=== PATIENT | male | born 1995 | race Caucasian/White ===

== ENCOUNTER 2025-07-08 03:02 | Emergency (ER) | payer BC ==
[~2025-07-08] VITALS: Ht 185.4 cm; Wt 180.4 kg
--- NOTE | 2025-07-08 03:11 | ELECTROCARDIOGRAPH REPORT ---
[facility] Test Date: 2025-07-08 Test Time: 03:09:58 Pat Name: LYNETTE BANG Department: EMERGENCY ROOM Patient ID: [id number]-[id number] Room: Gender: M [employer]ig[employer]: : 1995 Requested By: REHAN SARKAR Order Number: [id number] Reading MD: Dr. ANDREW Escamilla Measurements Intervals [place] Rate: 68 P: 15 AK: 123 QRS: 38 QRSD: 92 T: -15 QT: 377 QTc: 401 Interpretive Statements Sinus arrhythmia Borderline T abnormalities, inferior leads Electronically Signed On 07-09-2025 18:40:[address] ANDREW Escamilla Please click the below link to view image of tracing.
--- NOTE | 2025-07-08 03:36 | Physician Documentation ---
History of Present Illness ~ Chief Complaint: Chest Pain Stated Complaint: CHEST TIGHTNESS Time Seen by MD: 03:17 HPI This is a 30-year-old gentleman with a known history of hypertension, currently noncompliant with his medications on weekends, presents for evaluation of chest pain that he describes as pressure and tightness. He states that he had a big meal for dinner with a some alcoholic beverages. Subsequent to that developed chest pain. No particular palliating or aggravating factors. Did not attempt to treat it. Has not experienced this in the past. No family history of coronary artery disease. Denies any concern for tobacco, alcohol or illicit substances use Medication Reconciliation Allergies: Coded Allergies: No Known Allergies (Unverified , 07/08/25) Review of Systems ROS 10 point review of systems was performed and unless noted above in HPI is negative for acute process/complaint. Physical Exam Vital Signs: Temperature: 98.1, Source: Oral, Heart Rate: 84, Respiratory Rate: 16, BP: 173/96, Pulse Oximetry: 99, Weight: 180.400 Physical Exam GENERAL: Awake, alert, oriented, GCS 15, no apparent distress, non-toxic appearing, answers questions, follows commands appropriately. HEENT: Atraumatic, normocephalic, pupils equal, extraocular muscles intact, sclerae anicteric, mucus membranes moist, oropharynx is clear, no stridor. NECK: supple, full active range of motion, trachea midline, no thyromegaly, no lymphadenopathy, no JVD. CARDIOVASCULAR: regular rate/rhythm, no murmurs/gallops/rubs, Pulses are 2+ in all extremities and symmetric. Capillary refill less than 2 seconds. PULMONARY: Nonlabored, good air movement ,no respiratory distress, speaking in full sentences, clear to auscultation bilaterally, no wheezing, no ronchi, no rales, no accessory muscle use. GASTROINTESTINAL: Soft, non-tender, non-distended, normal active bowel sounds, no organomegaly, no pulsatile masses, no CVA tenderness. NEUROLOGIC: Lucid with normal mental status. Normal facial symmetry. Moves all extremities symmetrically and with purpose. No truncal ataxia. Speech is fluid without evidence of dysarthria or aphasia, no focal deficits appreciated. MUSCULOSKELETAL: There is full range of motion of all extremities. There is no joint pain or joint swelling or joint erythema. There is no muscle pain or tenderness or swelling. EXTREMITIES: warm, well-perfused, no cyanosis, no clubbing, no edema, no acute deformities. Skin: warm, dry, no rashes or lesions, no jaundice, no petechiae orpurpura. No ecchymosis. PSYCHIATRIC: Normal affect, normal insight, normal concentration. Focused exam: [] Progress Results/Orders Results/Orders Orders - MOHAN SARKAR DO Chest,Single View (07/08/25 03:06) Monitor (07/08/25 03:06) Saline Lock (07/08/25 03:06) Oxygen (07/08/25 03:06) Hs Troponin I W Calculations (07/08/25 05:06) Hs Troponin I W Calculations (07/08/25 06:06) Urinalysis, Cult If Indicated (07/08/25 03:06) Completed Orders - MOHAN SARKAR DO Chest,Single View (07/08/25 03:06) Cbc/Diff (07/08/25 03:06) PBNP (07/08/25 03:06) Electrocardiogram (07/08/25 03:06) Hs Troponin I W Calculations (07/08/25 03:06) Lipase (07/08/25 03:06) CMP (07/08/25 03:06) Ondansetron Disint. Tablet (Zofran Odt T (07/08/25 03:20) Pantoprazole Tablet (Protonix) (07/08/25 03:20) Mag & Alum Hydrox/Simeth Susp (Maalox Or (07/08/25 03:20) Famotidine Tablet (Pepcid Tablet) (07/08/25 03:20) Dicyclomine Capsule (Bentyl Capsule) (07/08/25 03:20) Lidocaine 2% Viscous (Xylocaine 2% Visco (07/08/25 03:20) Medications Received in ER Medications (Trade) Dose Ordered Sig/Brennan Route PRN Reason Start Time Stop Time Status Last Admin Dose Admin (Zofran ODT tablet) 4 mg ONCE ONCE PO 07/08/25 03:20 07/08/25 03:27 DC 07/08/25 04:49 4 MG (Protonix) 40 mg ONCE ONCE PO 07/08/25 03:20 07/08/25 03:27 DC 07/08/25 04:50 40 MG (Maalox oral suspension) 30 ml ONCE ONCE PO 07/08/25 03:20 07/08/25 03:27 DC 07/08/25 04:51 30 ML (Pepcid tablet) 20 mg ONCE ONCE PO 07/08/25 03:20 07/08/25 03:27 DC 07/08/25 04:50 20 MG (Bentyl capsule) 20 mg ONCE ONCE PO 07/08/25 03:20 07/08/25 03:27 DC 07/08/25 04:50 20 MG (Xylocaine 2% Viscous 15mL cup) 20 ml ONCE ONCE MM 07/08/25 03:20 07/08/25 03:27 DC 07/08/25 04:52 20 ML Vital Signs 07/08/25 07/08/25 07/08/25 03:10 04:54 05:43 Temp 98.1 98.0 98.0 Pulse 84 68 96 Resp 16 16 17 B/P (MAP) 173/96 162/96 (118) 145/99 (114) Pulse Ox 99 98 96 O2 Flow Rate 0 0 Laboratory Tests Test 07/08/25 03:22 White Blood Count 10.9 Red Blood Count 5.22 Hemoglobin 14.9 Hematocrit 44.3 Mean Corpuscular Volume 85.0 Mean Corpuscular Hemoglobin 28.5 Mean Corpuscular Hemoglobin Concent 33.5 Red Cell Distribution Width 14.0 Platelet Count 333 Mean Platelet Volume 6.4 L Neutrophils (%) (Auto) 58.8 Lymphocytes (%) (Auto) 33.6 Monocytes (%) (Auto) 5.6 Eosinophils (%) (Auto) 1.5 Basophils (%) (Auto) 0.5 Neutrophils # (Auto) 6.4 Lymphocytes # (Auto) 3.7 Monocytes # (Auto) 0.6 Eosinophils # (Auto) 0.2 Basophils # (Auto) 0.1 CBC Comment Sodium Level 142 Potassium Level 3.8 Chloride Level 104 Carbon Dioxide Level 27.0 Anion Gap 11 Blood Urea Nitrogen 15 Creatinine 0.95 Estimated GFR/1.73 m2 > 90 BUN/Creatinine Ratio 15.8 Glucose Level 112 H Calcium Level 9.0 Total Bilirubin 0.3 Aspartate Amino Transf (AST/SGOT) 28 Alanine Aminotransferase (ALT/SGPT) 40 Alkaline Phosphatase 64 Troponin I High Sensitivity 25 Pro-B-Type Natriuretic Peptide 51 Total Protein 8.0 Albumin 3.9 Globulin 4.1 Albumin/Globulin Ratio 1.0 L Lipase 40 Chemistry Comments EKG/XRAY/CT/US/VASC/MRI Chest X-Ray : Additional Comments EKG was obtained and interpreted by myself showing sinus rhythm, rate of 68, normal MA interval, narrow QRS, no QT prolongation, normal axis, no STEMI. Heart Score: Heart Score Response (Comments) Value History Slightly Suspicious 0 EKG Normal 0 Age <45 0 Risk Factors 1 or 2 risk factors 1 Troponin Normal limit 0 Total 1 Medical Decision Making Additional information obtaine: N/A Findings Facility Status: ED Holds, RME process The plan was discussed with the patient, who demonstrates clear understanding of the plan and is in agreement with the plan unless otherwise noted in the chart. All questions have been answered, all concerns were addressed unless otherwise documented. I was available throughout their ED stay for frequent reassessment and questions. Differential Diagnoses (considered and possible or likely): [Differential diagnosis considered includes chest wall pain, pleurisy, pneumonia, pulmonary embolus, GERD, esophagitis, gastritis, anxiety, stress reaction, costochondritis, acute coronary syndrome, aortic dissection, pericarditis, myocarditis, or pneumothorax.] ??Differential Diagnoses (considered and unlikely, not requiring evaluation currently): [Aortic/great vessels dissection was considered but it is unlikely based on absence of ripping, tearing, migratory chest pain, absence of syncope or focal neurologic deficits, physical examination indicating equal and symmetric pulses.] MDM Data Please see [facility] for the following: Independent Historians and external Records Review. Historian: [Patient] Independent Historians: ?[None] Medication Management: [Reviewed medication list] Social History and determinants: [Reviewed] Please see the body of the note for the following: Any independent interpretations of ECG, imaging studies. All vitals signs/haemodynamics, ordered tests were independently reviewed and interpreted by myself. Nursing triage complaint and vitals reviewed, additional nursing notes were reviewed as available and I agree unless otherwise noted or documented in contradiction in the chart Vital Signs: Independently reviewed Labs: Independently interpreted Imaging: Independently interpreted Old Medical Records: Independently reviewed, see HPI for relevant summary and information Pulse Oximetry: [99%] interpreted as [normal on room air] by me Additionally notably showing: [Hemodynamics reviewed. The patient isn't febrile, not tachycardic, no evidence of hypotension respiratory distress. CBC normal. Chemistries unremarkable. Troponin is negative. BNP is normal. Lipase is normal. Chest x-ray was obtained showing no acute cardiopulmonary disease.] Tests considered but not ordered include: [The patient is PERC negative. CT angiography does not appear to be necessary] Social Determinants of Health Impact: Patient was evaluated in [facility] [place] to healthcare due to below par ratio of patient to medical providers. [] Comorbid Conditions Impacting Present Evaluation and Care/Treatment: [Hypertension] Management Discussions with other Healthcare Providers: [] Treatment and Disposition Medication Management (Given or considered): []. See EMR for details Consideration for Hospitalization/Escalation/Deescalation of Care: Admission for observation has been considered, [however the patient is able to tolerate p.o., their symptoms are controlled, they are able to rely on oral medications, and their chief complaint/diagnosis can be managed on outpatient basis.] ?ED Course:?[Date: Jul 08, 2025 Time: 05:51 the patient is feeling markedly better. He desires to be discharged. He does not want to wait for a 2nd troponin. He is a low risk chest pain with a heart score of one. ] ?Shared decision making:?[Patient is hemodynamically stable for discharge home with follow with their primary care provider. [ ] Specific and cautious return precautions provided and discussed with full understanding. Any incidental findings were also discussed and follow up recommendations given. [] All questions answered. Patient/family were able to verbalize back return precautions. Patient/family agree to plan. Copies of imaging and laboratory studies were provided.] Code status:?FULL Please see the full Electronic Medical Record for full details of nursing documentation, medications list, other records of complete past medical history and conditions, vital signs, laboratory studies, and any radiologic study interpretations by radiologists. Portions of this note were completed using [employer] dictation software and as a result there may exist minor errors in spelling. I have reviewed elements of past family and social history and agree as included in note. Heart Score: 1 Differential Dx:Considerations: Include: other (See body of main note for differential diagnosis) Departure Disposition: 01 HOME / SELF CARE / HOMELESS Impression: Primary Impression: Acute chest pain Condition: Improved Discharge Instructions: Nonspecific Chest Pain, Adult Referrals: NO PRIMARY CARE PROVIDER (PCP) Education Educated: Patient Educated regarding: diagnosis, treatment, prognosis, need for follow up Signature Scribe Signature: No scribe Attestation: The note accurately reflects work and decisions made by me.Mohan Sarkar, 07/08/25 03:35 MOHAN SARKAR DO Jul 08, 2025 03:35
[2025-07-08 03:37] LABS: MEAN PLATELET VOLUME 6.4 FL (7.4-10.4); RED CELL DISTRIBUTION WIDTH 14.0 % (11.5-14.5)
[2025-07-08 04:05] LABS: CREATININE 0.95 MG/DL (0.60-1.10); TOTAL CARBON DIOXIDE 27.0 MMOL/L (24-32); eCRCL 126 ML/MIN; eGFR > 90 ML/MIN
--- NOTE | 2025-07-08 04:08 | RADIOLOGY REPORT ---
CHEST RADIOGRAPH Indication: CP Technique: Single frontal view of the chest was obtained COMPARISON: None FINDINGS: Lines and Tubes: None Lungs: Clear Pleura: No effusion. No pneumothorax. Cardiomediastinal contours: Unremarkable Bones: Unremarkable IMPRESSION: 1. No acute disease.
[2025-07-08 04:13] LABS: PRO BRAIN NATRIURETIC PEPTIDE 51 PG/ML (0-125)
[2025-07-08] MEDS: ondansetron 4mg rapidly disintigrating tab PO ONE (04:49)
[2025-07-08] MEDS: pantoprazole 40mg Tablet.DR PO ONE (04:50)
[2025-07-08] MEDS: mag hydrox/Alum hydrox/simeth 30ml oral suspension PO ONE (04:51)
[2025-07-08] MEDS: LIDOcaine 2% Viscous 15ml cup MM ONE (04:52)
[2025-07-08 06:11] VITALS: BP 153/92; PULSE 68; TEMP 98; O2SAT 96
[2025-07-08 06:12] VITALS: RESP 12
== END 2025-07-08 06:14 | disposition home or self-care (01) ==
LOC: ER 03:03
DX: R07.9 Chest pain, unspecified (principal); I10 Essential (primary) hypertension
CPT/HCPCS: 36415; 71045; 80053; 83690; 83880; 84484; 85025; 93005; 99285